=== PATIENT | male | born 1940 | race Caucasian/White ===

== ENCOUNTER → 2017-09-01 | Outpatient (CLI) | payer MEDICARE, OTHER ==
--- NOTE | 2017-09-01 15:42 | NM ---
EXAMINATION TYPE: NM bone scan whole body DATE OF EXAM: 09/01/2017 COMPARISON: NONE HISTORY: Prostate cancer, C 62 Delayed whole-body scanning was performed following the injection of 24.9 mCi Tc 99m MDP. Images acq uired 3 hours post injection. FINDINGS: There is abnormal increased radio pharmaceutical uptake along the right third rib laterally. Uptake i s also present within the anterior aspect of the left ilium. Abnormal uptake seen at the superior asp ect of the right ilium. Uptake within the feet, knees, wrists and hands, shoulders and sternoclavicul ar joints is felt likely to be degenerative. Soft tissue uptake is normal may be a focus of abnormal uptake involving the sacrum. There is a scoliotic curvature of the spine. Uptake at the lumbosacral j unction may be degenerative. IMPRESSION: Findings compatible with metastatic disease.
== END | disposition home or self-care (01) ==
LOC: RADNMMAIN 11:26
PROVIDERS: ATTEND Urology
DX: C61 Malignant neoplasm of prostate (principal)
CPT/HCPCS: 78306; A9503